=== PATIENT | male | born 1975 | race Two or more races ===

== ENCOUNTER 2021-04-28 07:00 | Outpatient (CLI) | payer OTHER | END 2021-04-28 08:00 | disposition home or self-care (01) | LOC: PPH VACUNA 07:00 | PROVIDERS: ATTEND Emergency Medicine Pediatric Emergency Medicine | DX: Z23 Encounter for immunization (principal) ==

== ENCOUNTER → 2022-02-15 | Emergency (ER) | payer OTHER ==
[~2022-02-15] VITALS: Ht 177.8 cm; Wt 124.7 kg
== END | disposition home or self-care (01) ==
LOC: ER 14:42
DX: M54.50 Low back pain, unspecified (principal)